=== PATIENT | male | born 1995 | race Caucasian/White ===

== ENCOUNTER 2019-08-11 15:25 | Emergency (ER) | payer OTHER ==
--- NOTE | 2019-08-11 18:46 | EDM.PDOC ---
ED HPI GENERAL MEDICAL PROBLEM - General Chief Complaint: General Stated Complaint: LIGHTED HEADED Time Seen by Provider: 08/11/19 17:04 Source of Information: Reports: Patient, Family History Limitations: Reports: No Limitations - History of Present Illness INITIAL COMMENTS - FREE TEXT/NARRATIVE: 23 y.o.w.m came with his SO to the ED due to tingling of his nose, fingers and toes. Pt donated Plasma the day before. Pt donated plasma several time in the past. He was drinking last night. He had not much water intake but drank Gatorade yesterday and this morning. No N/V/D, no SOB or chest pain. No other acute med issues. BP 158/76 Pulse 56 RR 20 Pulse ox 100% on RA Temp 36.8 Onset Date: 08/11/19 Onset Time: 10:00 Duration: Hour(s): Location: Reports: Generalized Quality: Reports: Other (nose, fingers and toes tingling) Improves with: Reports: Other (drinking water) Worsens with: Reports: Other (ETOH) Context: Reports: Other (was donating plasma the day before) Associated Symptoms: Reports: Weakness, Other (dizzy) - Related Data Allergies Allergy/AdvReac Type Severity Reaction Status Date / Time No Known Allergies Allergy Verified 08/11/19 17:10 Home Meds: Home Meds NK [No Known Home Meds] 08/11/19 [History] Past Medical History Gastrointestinal History: Reports: Other (See Below) Other Gastrointestinal History: gluten & lactose allergy - Past Surgical History HEENT Surgical History: Reports: Adenoidectomy, Oral Surgery, Tonsillectomy GI Surgical History: Reports: Colonoscopy Social & Family History - Family History Family Medical History: Noncontributory - Tobacco Use Smoking Status *Q: Former Smoker Used Tobacco, but Quit: Yes Month/Year Tobacco Last Used: 2018 - Caffeine Use Caffeine Use: Reports: Soda - Recreational Drug Use Recreational Drug Use: No ED ROS GENERAL - Review of Systems Review Of Systems: See Below Constitutional: Reports: No Symptoms HEENT: Reports: No Symptoms Respiratory: Reports: No Symptoms Cardiovascular: Reports: No Symptoms Endocrine: Reports: No Symptoms GI/Abdominal: Reports: No Symptoms : Reports: No Symptoms Musculoskeletal: Reports: No Symptoms Skin: Reports: No Symptoms Neurological: Reports: Dizziness Psychiatric: Reports: No Symptoms Hematologic/Lymphatic: Reports: No Symptoms Immunologic: Reports: No Symptoms ED EXAM, GENERAL - Physical Exam Exam: See Below Exam Limited By: No Limitations General Appearance: Alert, WD/WN, Mild Distress Eye Exam: Bilateral Eye: Normal Inspection Ears: Normal External Exam Ear Exam: Bilateral Ear: Auricle Normal Nose: Normal Inspection, Normal Mucosa, No Blood Throat/Mouth: Normal Lips, Normal Voice, No Airway Compromise, Other (dry mucosal mebrane) Head: Atraumatic, Normocephalic Neck: Normal Inspection, Supple, Non-Tender Respiratory/Chest: No Respiratory Distress, Lungs Clear, Normal Breath Sounds, No Accessory Muscle Use, Chest Non-Tender Cardiovascular: Normal Peripheral Pulses, Regular Rate, Rhythm, No Edema, No Gallop, No JVD, No Murmur, No Rub Peripheral Pulses: 1+: Brachial (L) GI/Abdominal: Normal Bowel Sounds, Soft, Non-Tender, No Organomegaly, No Distention, No Abnormal Bruit, No Mass, Pelvis Stable (Male) Exam: Deferred Rectal (Males) Exam: Deferred Back Exam: Normal Inspection, Full Range of Motion Extremities: Normal Inspection, Normal Range of Motion, Non-Tender, No Pedal Edema, Normal Capillary Refill Neurological: Alert, Oriented, CN II-XII Intact, Normal Cognition, Normal Gait, Normal Reflexes, No Motor/Sensory Deficits Psychiatric: Normal Affect, Normal Mood Skin Exam: Warm, Dry, Intact, Normal Color, No Rash Lymphatic: No Adenopathy Course - Vital Signs Text/Narrative:: 23 y.o.w.m came with his SO to the ED due to tingling of his nose, fingers and toes. Pt donated Plasma the day before. Pt donated plasma several time in the past. He was drinking last night. He had not much water intake but drank Gatorade yesterday and this morning. No N/V/D, no SOB or chest pain. No other acute med issues. BP 158/76 Pulse 56 RR 20 Pulse ox 100% on RA Temp 36.8 PE: WNWD WM, muscular Labs: CBC, BMP nl Pt was able to void, UA was not collected Impression: Dehydration, S/P Plasma Donation Tx: Water Reexam: Pt felt better after drinking 1 liter a straight water. Orthostatic were taken then. Tingling/Dizziness improved. Plan: D/C with instructions Last Recorded V/S: Last Vital Signs Temp 36.7 C 08/11/19 17:04 Pulse 56 L 08/11/19 17:04 Resp 18 08/11/19 17:04 BP 151/83 H 08/11/19 17:04 Pulse Ox 100 08/11/19 17:04 Orthostatic Blood Pressure [ 132/80 Standing] Orthostatic Blood Pressure [ 130/72 Sitting] Orthostatic Blood Pressure [ 136/74 Supine] - Orders/Labs/Meds Labs: Laboratory Tests 08/11/19 08/11/19 Range/Units 17:39 17:39 WBC 8.0 (4.5-12.0) X10-3/uL RBC 5.59 (4.30-5.75) x10(6)uL Hgb 15.5 (13.5-17.8) g/dL Hct 45.9 (30.0-51.3) % MCV 82.2 (80-96) fL MCH 27.8 (27.7-33.6) pg MCHC 33.9 (32.2-35.4) g/dL RDW 12.9 (11.5-15.5) % Plt Count 272 (125-369) X10(3)uL MPV 7.3 L (7.4-10.4) fL Neut % (Auto) 71.8 (46-82) % Lymph % (Auto) 16.9 (13-37) % [place] % (Auto) 5.5 (4-12) % Eos % (Auto) 5 (1.0-5.0) % Baso % (Auto) 1 (0-2) % Neut # (Auto) 5.7 (1.6-8.3) # Lymph # (Auto) 1.4 (0.6-5.0) # [place] # (Auto) 0.4 (0.0-1.3) # Eos # (Auto) 0.4 (0.0-0.8) # Baso # (Auto) 0.1 (0.0-0.2) # Sodium 142 (135-145) mmol/L Potassium 3.9 (3.5-5.3) mmol/L Chloride 106 (100-110) mmol/L Carbon Dioxide 27 (21-32) mmol/L BUN 9 (7-18) mg/dL Creatinine 1.1 (0.70-1.30) mg/dL Est Cr Clr Drug Dosing 112.19 mL/min Estimated GFR (MDRD) > 60 (>60) BUN/Creatinine Ratio 8.2 L (9-20) Glucose 91 (80-116) mg/dL Calcium 8.6 (8.6-10.2) mg/dL Departure - Departure Time of Disposition: 18:45 Disposition: Home, Self-Care 01 Condition: Good Clinical Impression: Dehydration - Discharge Information Instructions: Dehydration, Adult, [id number] Referrals: PCP,None [Primary Care Provider] - Forms: ED Department Discharge Additional Instructions: Please increase water intake, please follow up with your regular MD if not improving, come back if your symptoms get worse acutely. Next time donate plasma, tell staff about tingling & dizziness afterwards.
== END 2019-08-11 18:51 | disposition home or self-care (01) ==
LOC: FB.ED 15:25
DX: E86.0 Dehydration (principal); Z87.891 Personal history of nicotine dependence
CPT/HCPCS: 36415; 80048; 85025; 99284